=== PATIENT | female | born 1945 | race Caucasian/White ===

== ENCOUNTER 2016-12-24 06:54 | Inpatient (IN) | payer MEDICARE ==
[2016-12-24] VITALS (12 sets, daily range): BP systolic 103–151; BP diastolic 57–94; PULSE 68–86; RESP 12–16; O2SAT 92–97
[~2016-12-24] VITALS: Ht 167.6 cm; Wt 78.1 kg
[~2016-12-24 06:54] MED LIST: ASCO250T7 PO; Bupivacaine Liposome 1.3% 20 mL Inj INFILTRATE ONE; CALC-243 PO; CHOL100045 PO; CeFAZolin Inj 2 GM in IV Premix 1 EACH IV ONE; ESTR10TA VAGINAL; HYG25 PO; LEVO112T4 PO; LIOT5TAB3 PO; Lactated Ringer's 1,000 ML IV ONE; MULT-620 PO; MULT-908 PO; Tranexamic Acid 100 mg/mL 10 mL Inj IV SCH; Vancomycin Inj 1,000 MG in IV Premix 1 EACH IV ONE
[2016-12-24] MEDS ORDERED: Lactated Ringer's 1,000 ML IV ONE (07:47)
--- NOTE | 2016-12-24 08:41 | PCM.HPANE ---
Patient Data Surgeon Admitting Provider: Attending Provider:Pierce Rosas MD Primary Care Physician:Judith Roman MD Other Provider:CheyanneocGabbyDubach Anesthesia Reason for Visit Right Knee Arthritis Ht/WT & BMI Height (Feet): 5 Height (Inches): 6.00 Weight (Kilograms): 78.100 Body Mass Index 27.00 Allergies Coded Allergies: No Known Drug Allergies (Verified Allergy, Unknown, 12/20/16) Past Anesthesia History Anesthesia History: Denies:: Abnormal Airway, Anesthesia Reactions, Difficult Intubation, Fam Anesthesia Reaction, Fam Malignant Hypertherm, Malignant Hyperthermia Diabetes History Hx Diabetes?: No MRSA MRSA: No Medications Hypertension Medication: Yes (CHLORTHALIDONE) Home Meds Incl Beta Ernesto: No Reported Medications Ascorbic Acid (Vitamin C)250 Mg Tab.exiv000 Mg PO BID 30 Days Ref 0 12/20/16 Estradiol (Vagifem)10 Mcg Uyitls88 Mcg VAGINAL 2X/WEEK 12/20/16 Chlorthalidone 25 Mg Udtewf54.5 Mg PO DAILY #30 TABLET 12/20/16 Calcium Carbonate/Vitamin D3 (Calcium 600 + Vit D Tablet)1 Each Tablet2 Each PO DAILY 12/20/16 Levothyroxine 112 Mcg [id number] Mcg PO DAILY For Thyroid Replacement Ref 0 12/20/16 Liothyronine Sodium 5 Mcg Tablet5 Mcg PO DAILY #30 TABLET 01/26/15 Discontinued Reported Medications Multivits Min/Iron/FA/Herb#186 (Hair, Skin & Nails Caplet)1 Each Tablet1 Each PO DAILY 12/20/16 Cholecalciferol (Vitamin D3) (Vitamin D)1,000 Unit Capsule2,000 Unit PO DAILY # 1 BOTTLE Ref 0 12/20/16 Multivitamin with Minerals (Totalday Multiple)1 Each Tablet.er1 Each PO DAILY 12/20/16 Levothyroxine (Synthroid)100 Mcg Gnilum527 Mcg PO DAILY 30 Days Ref 0 01/26/15 Multivitamin with Minerals (Multiple Vitamin)1 Each Tablet1 Each PO DAILY 01/26/15 Cholecalciferol (Vitamin D3) (Vitamin D-3)2,000 Unit Capsule2,000 Unit PO 01/26/15 History History of ENT Problems?: Yes HEENT History: Positive for:: Cataracts (S/P EXTRACTION) Denies:: Abnormal Airway Difficult Intubation Hearing Problem Hx of Heart Problems?: Yes Cardiovascular History: Positive for:: Abdominal Aortic Aneurism (ASCENDING AORTA MILDLY ENLARGED) Hypertension Irregular Heartbeat (C/OF PALPITATIONS,NEAR-SYNCOPE) Valvular Heart Disease Denies:: Heart Murmur (ECHO 10/2016 EF 60-65%) Hx of Respiratory Problem?: No Respiratory History: Denies:: Use of C-PAP Machine Hx Neurologic Problems?: Yes Neurological History: Positive for:: Dizziness (HX NEAR-SYNCOPE) Headaches Denies:: CVA Hx of GI Problems?: Yes Gastrointestinal History: Positive for:: Liver Disease (LIVER CYST NOTED ON ECHO) Denies:: Diverticulitis (DIVERTICULOSIS) Hx of Problems?: Yes Female Hx: Denies:: Currently (ATROPHIC VAGINITIS) Skin History: Denies:: History Skin Disorders? Pressure Ulcers Hx Musculoskeletal Problems?: Yes Musculoskeletal History: Positive for:: Degenerative Joint (RT KNEE=CURRENT PROBLEM) Joint Replacement (S/P LT TKA) Osteoarthritis (OSTEOPENIA) Hx of Psycho/Social Problems?: No Hx Surgeries?: Yes (CATARACT,LT TKA,HYST) Hx Any Other Health Problems?: Yes Other History: Positive for:: Hospitalization Thyroid Disease Denies:: Cancer Endocrine Disease History Blood Transfusions: Denies:: Blood Transfusions Hx Diabetes: No Hx Alcohol Use: YesAlcoholic Drinks Per Day: 1-3/DAYHx Substance Use: No Smoking Status: Former Smoker Have You Smoked inLast 12 mo: NoApprox How Many Cigarettes/day: 15 PK/YR/HX Stop/Bang S-Snoring: Do You Snore Loudly: No T-Tired: feel tired, fatigued: Yes O-Obsered: Observed not breath: No P-Blood Pressure: treated: Yes B- Body Mass Index > 35 kg/m2: No A- Age over 50: Yes N- Neck Large Circumference: No G- Gender Male: No PATRICIA Total Score: 3 PATRICIA Risk Assessment: High Risk, =/>3 Yes PATRICIA Category 2: Yes Risk Assessment Category Category 1A: Patient has history of documented sleep apnea, and HAS NOT received any narcotic, sedative or anesthesia administration during this stay. Category 1B: Patient has history of documented sleep apnea, and HAS received any narcotic , sedative or anesthesia administration during this stay Category 2: Patient has SUSPECTED Obstructive Sleep Apnea, and HAS received any narcotic , sedative or anesthesia administration during this stay. Category 3: Patient has SUSPECTED Obstructive Sleep Apnea and HAS NOT received narcotic, sedative or anesthesia administration during this stay. Category 4: Outpatient in Procedural Areas with known sleep apnea or who screen positive for High Risk via the STOP/BANG questionnaire. Exam Exam Vital Signs Vital Signs Date Time Temp Pulse Resp B/P Pulse Ox O2 Delivery O2 Flow Rate FiO2 12/24/16 07:22 36.5 86 16 151/94 96 Room Air General Appearance: Alert HEENT/AIRWAY: MP 1 Lungs: Clear to Auscultation Heart: Exam Unremarkable Meds/Labs/Diagnostics Admission Meds Current Medications Lactated Ringer's (Lr) 1,000 ml @ ud STK-MED ONCE IV Last administered on 12/24t 07:47; Start 12/24/16 at 07:47; Stop 12/24/16 at 07:48; Status DC Plan Impression Patient chart reviewed, patient interviewed and anesthestic plan with risks, benefits, and alternatives discussed, and informed consent obtained. NPO Status: 12/23@1900 ASA Physical Status: ASA2 Mod Systemic Disease Anesthetic Plan: Regional Block, SAB Bene/Risks/Altern/Consents: Yes HP Complete Prior to Induction: Yes Pavel Blanc MD Dec 24, 2016 08:41
[2016-12-24] MEDS ORDERED: 0.9% Sodium Chloride 200 ML ONE (10:07)
[2016-12-24] MEDS ORDERED: Gentamicin 40 mg/mL 2 mL Inj IRRIGATION ONE (10:09)
[2016-12-24] MEDS ORDERED: Bupivacaine-MPF 0.25%/EPI 30 mL Inj INJ ONE (10:09)
[2016-12-24] MEDS: Tranexamic Acid 100 mg/mL 10 mL Inj ONE ×2 (10:30→11:33)
[2016-12-24] MEDS ORDERED: Lactated Ringer's 500 ML IV PRN (11:12)
[2016-12-24] MEDS ORDERED: Lactated Ringer's 1,000 ML IV SCH (11:12)
[2016-12-24] MEDS ORDERED: Dexamethasone 4 mg/mL Inj IVPUSH PRN (11:15)
[2016-12-24] MEDS ORDERED: Phenylephrine 10,000 mCg/mL Inj IVPUSH PRN (11:15)
[2016-12-24] MEDS ORDERED: EPHEDrine Sulfate 50 mg/mL Inj IVPUSH PRN (11:15)
[2016-12-24] MEDS ORDERED: HYDROmorphone 1 mg/mL Inj IVPUSH PRN (11:15)
[2016-12-24] MEDS ORDERED: Ondansetron 2 mg/mL 2 mL Inj IVPUSH PRN (11:15)
[2016-12-24] MEDS ORDERED: MetoCLOpramide 5 mg/mL 2 mL Inj IVPUSH PRN (11:15)
[2016-12-24] MEDS ORDERED: fentaNYL-PF 50 mCg/mL 2 mL Inj IVPUSH PRN (11:15)
[2016-12-24] MEDS ORDERED: Dexamethasone 4 mg/mL Inj INTRARTICU ONE (11:38)
--- NOTE | 2016-12-24 12:06 | PCM.ANEP1 ---
Post Anesthesia Phase 1 PACU Phase 1 Assessment Vital Signs Vital Signs Date Time Temp Pulse Resp B/P Pulse Ox O2 Delivery O2 Flow Rate FiO2 12/24/16 07:22 36.5 86 16 151/94 96 Room Air Anesthetic Administered: SAB Level of Alertness: Awake, talking IRENE's with Equal Strength: No Pain: No Nausea or Vomiting: No Oxygen Delivery: Room Air Lungs: Clear to Auscultation Summary AWAKE, no complications 103/59 sat 96 temp 36.6 rr12 Pavel Blanc MD Dec 24, 2016 12:06
--- NOTE | 2016-12-24 12:43 | DRSVH ---
PROCEDURE: X-RAY RIGHT KNEE, ONE OR TWO VIEWS ([id number]) INDICATIONS: PROTHESIS ALIGNMENT TECHNIQUE: 2 view(s) of the knee acquired. COMPARISON: None. FINDINGS: Bones: Patient is status post knee joint arthroplasty. Hardware components are in expected position s. Visualized bony structures are intact. Soft tissues: Overlying postoperative changes are noted. IMPRESSION: Expected appearance following right knee arthroplasty. Dictated by: Muna Leon M.D. on 12/24/2016 at 12:41 Approved by: Muna Leon M.D. on 12/24/2016 at 12:41
[2016-12-24 13:04] LABS: APPEARANCE,URINE HAZY (CLEAR,HAZY); COLOR,URINE STRAW (YELLOW); PH,URINE 7.5 (5.0-8.0)
[2016-12-24 13:05] LABS: OCCULT BLOOD,URINE NEGATIVE (NEGATIVE); UROBILINOGEN,URINE NORMAL (NORMAL)
[2016-12-24] MEDS ORDERED: fentaNYL-PF 50 mCg/mL 2 mL Inj ONE (13:17)
[2016-12-24] MEDS ORDERED: Propofol 10,000 mCg/mL 20 mL Inj ONE (13:17)
[2016-12-24] MEDS ORDERED: diphenhydrAMINE 25 mg Capsule PO PRN (13:35)
[2016-12-24] MEDS ORDERED: LORazepam 0.5 mg Tablet PO PRN (13:35)
[2016-12-24] MEDS ORDERED: Ondansetron 2 mg/mL 2 mL Inj IV PRN (13:35)
[2016-12-24] MEDS ORDERED: MetoCLOpramide 5 mg/mL 2 mL Inj IV PRN (13:35)
[2016-12-24] MEDS ORDERED: Sodium Biphos-Phos 133 mL Enema RECTAL PRN (13:35)
[2016-12-24] MEDS ORDERED: Alum-Mag Hydrox-Simeth 30 mL Suspension PO PRN (13:35)
[2016-12-24] MEDS ORDERED: Magnesium Hydroxide 10 mL Oral Concentration PO PRN (13:35)
[2016-12-24] MEDS: Lactated Ringer's 1,000 ML IV SCH (13:35)
[2016-12-24] MEDS ORDERED: Ondansetron 8 mg ODT Tablet PO PRN (13:35)
[2016-12-24] MEDS: oxyCODONE-Acetamin 5-325 mg Tablet PO PRN ×4 (14:00→22:41)
--- NOTE | 2016-12-24 14:00 | NUR ---
POST-OP Patient received from PACU via a hospital bed. On O2 at 2 LPM via NC. IVF ongoing. Dressing is CDI on her RLE. Hemovac is intact and clamped at this time. Hemovac to be unclamped at 1700 per report. IFC intact and draining to jennyfer colored UO. Patient denies pain at this time. Denies nausea/SOB. BLE numbness. Spinal and Fem block is in effect. Patient is able to wiggle toes. Oriented to room and call light. (Pls. refer to post-op grid for assessments).
--- NOTE | 2016-12-24 14:15 | PCM.ANEP2 ---
Post Anesthesia Evaluation ASA/CMS Post Anesthesia VS in Patient's Normal Range?: Yes Resp Stable; Airway Patent?: Yes CV Function & Hydration Stable: Yes Mental Status Recovered?: Yes Pain control Satisfactory?: Yes N/V Control Satisfactory?: Yes Pavel Blanc MD Dec 24, 2016 14:15
[2016-12-24] MEDS: hydrOXYzine Pamoate 25 mg Capsule PO PRN (15:46)
[2016-12-24] MEDS: CeFAZolin Inj 2 GM in IV Premix 1 EACH IV SCH (18:25)
--- NOTE | 2016-12-24 22:52 | OP ---
[address] [address] OPERATIVE REPORT PATIENT: JATIN JONES : 1945 MR#: [id number] ADMIT: 12/24/2016 JOB ID: [id number] DATE OF SURGERY: 12/24/2016 SURGEON: Pierce Rosas MD SINGLE WIRE SAW OPERATOR: Serenity Connor PA-C; Connor required for the total knee due to the significant complexity of the operation. PREOPERATIVE DIAGNOSIS(ES): 1. Advanced arthritis, right knee. 2. Probable neuroma, left knee. POSTOPERATIVE DIAGNOSIS(ES): PROCEDURES: 1. Right total knee replacement. 2. Left knee neuroma injection. INDICATIONS: This woman has severe progressive osteoarthritis. Symptoms uncontrolled with conservative treatment. She elects to proceed with a total knee replacement. She understands and accepts the potential for risks, complications, which include but are not limited to infection, thromboembolic, neurovascular events, implant failure, among others. Understanding this, she wishes to proceed. PROCEDURE: The patient was prepped and draped in the usual sterile fashion. An anteromedial approach made. The patella was subluxed laterally, cut transversely, sized to a 35 mm patella. Patellar protection plate utilized. Drill hole placed in the distal femur, 5 degree valgus distal femoral cut was made. The femur was sized to a 7. Chamfer block fixed in appropriate position. Rotation and chamfer cuts were made and subsequent trial drill holes were made. All meniscal tissue and osteophytes were removed. The tibia was cut with the extramedullary tool, sized to an E tibial plate, fixed in appropriate position. Rotation and drill hole and punch utilized. Trial reductions performed, and a 13-mm polyethylene produced excellent soft tissue tension and tracking, balance and alignment with a medial congruent trial polyethylene. Pressurized lavage followed by pressurized cementation of the components. Excess cement was removed during the curing process. Final construct was assembled. Full extension was easily achieved as well as passive drop to 120 degrees flexion with good collateral stability in flexion and extension. Wounds were irrigated with sterile irrigant including diluted Betadine solution. Deep closure over Hemovac drain with number #2 Quill deep followed by 2-0 Vicryl, 3-0, and a 4-0 intracuticular stitch. Steri-Strips applied and a sterile dressing. The patient was returned to the recovery room in stable condition. He tolerated the procedure well. Left knee was subsequently injected in the site of a previously marked neuroma in the incision line of her previous total knee replacement. A Band-Aid was applied to this wound. Standard postoperative course recommended.
[2016-12-25 00:13] VITALS: BP 115/64; PULSE 84; RESP 16; O2SAT 96
[2016-12-25] MEDS: CeFAZolin Inj 2 GM in IV Premix 1 EACH IV SCH (01:21)
--- NOTE | 2016-12-25 02:09 | NUR ---
Mobility PT will mobilize today with PT. Addendum: 12/25/16 at 0209 by EVIE IRIZARRY RN Amended: Links added.
[2016-12-25] MEDS: oxyCODONE-Acetamin 5-325 mg Tablet PO PRN ×5 (02:21→20:03)
--- NOTE | 2016-12-25 04:02 | NUR ---
NOC PT has done well over noc shift. She has slept well. N/V checks to RLE are WNL. Acewrap in place with tiny amount of old blood noted. H/V putting out minimal and will be removed this am. Pain well managed with 2 percocet about every [address] until after she mobilizes today. Vitals WNL.
[2016-12-25] MEDS ORDERED: Vancomycin 1,000 mg/200 mL NS IV ONE (05:00)
[2016-12-25 05:31] VITALS: BP 111/68; PULSE 77; RESP 16; O2SAT 95
[2016-12-25 05:36] LABS: BASOPHILS % (AUTO) 0.1 % (0-3); EOSINOPHILS % (AUTO) 0.2 % (0-5); MONOCYTES % (AUTO) 10.2 % (4-12); Mean Corpuscular Hemoglobin 30.7 pg (27.0-35.0); Mean Corpuscular Volume 90.4 fL (81-100); NEUTROPHILS % (AUTO) 77.1 % (40-74); Platelet Count 257 bil/L (150-400)
[2016-12-25] MEDS: Lactated Ringer's 1,000 ML IV SCH ×2 (06:33→22:55)
--- NOTE | 2016-12-25 06:50 | PCM.PNORTH ---
Subjective Date of Service: Dec 25, 2016 Visit Information: Reason for Visit Right Knee Arthritis Surgery/Surgery Date Post-Op Day # Date of Admission: Dec 24, 2016 at 13:16 Hospital Day # Subjective Found patient awake and alert this morning and sitting up in bed. No complaints of surgical pain at this time. Discussed physical therapy with patient and she relates that she has had a left knee surgery in the past and is made with the process. She is generally active person and anticipates discharge as soon as possible. She [place]. Patient does have a spouse at home will be helping her postoperative hand she does have 3 stairs to enter her house. Patient does complain of some pain at the posterior calf this morning and we will order an ultrasound for that. Patient also complains of some discomfort about the thigh which I believe is likely tourniquet discomfort. Postop General: No Shortness of Breath, No Chest Pain, Good Appetite Pain Management: PO Objective Exam Objective Orientation: Alert and oriented 3 and pleasant. Dressing: Interoperative dressing is clean dry and intact. Wound: Wound is not visualized today. Compartments: Thigh and calf are soft. Some tenderness to add mid thigh posteriorly. Some tenderness at posterior calf. Mobility/sensation: Toe wiggle and sensation are intact at right lower extremity distally. DAVID hose: None Crenshaw: In place and working Drain: In place and working Gait: No gait yet as of this time with formal physical therapy. Vital Signs and I/O Vital Sign - Last Date Time Temp Pulse Resp B/P Pulse Ox O2 Delivery O2 Flow Rate FiO2 12/25/16 05:31 36.4 77 16 111/68 95 Room Air 12/24/16 20:05 2.00 Intake and Output 12/24/16 12/24/16 12/25/16 Cumulative From/Thru 15:00 23:00 07:00 12/20/16 10:54 - 12/25/16 05:31 Intake Total 1550 ml 1823 ml 638 ml 4011 ml Output Total 366 ml 1500 ml 1885 ml 3751 ml Balance 1184 ml 323 ml -1247 ml 260 ml Intake Oral 1500 ml 638 ml 2138 ml IV Total 1550 ml 323 ml 1873 ml Output Urine Total 310 ml 1500 ml 1800 ml 3610 ml Drainage Total 0 ml 85 ml 85 ml Estimated Blood Loss 56 ml 56 ml # Bowel Movements 0 0 Lab & Micro Results Laboratory Tests Test 12/24/16 12:18 12/25/16 04:55 Urine Color Straw (YELLOW) Urine Appearance Hazy (CLEAR,HAZY) Urine pH 7.5 (5.0-8.0) Urine Specific [place] 1.015 (1.003-1.035) Urine Protein Negativemg/dL (NEG,TRACE) Urine Glucose (UA) Negativemg/dL (NEGATIVE) Urine Ketones Negativemg/dL (NEGATIVE) Urine Occult Blood Negative (NEGATIVE) Urine Nitrite Negative (NEGATIVE) Urine Bilirubin Negative (NEGATIVE) Urine Urobilinogen Normalmg/dL (NORMAL) Urine Leukocyte Esterase Negative (NEGATIVE) Urine RBC 0-2/hpf (0-2) Urine WBC 0-5/hpf (0-5) Urine Epithelial Cells Occasional/hpf (NONE-MOD) Urine Crystals None seen (NONE SEEN) Urine Bacteria None/hpf (NONE-FEW) Urine Hyaline Casts None/lpf (NONE) Urine Granular Casts None seen (NONE SEEN) Urine Waxy Casts None seen (NONE SEEN) Urine Red Blood Cell Casts None seen (NONE SEEN) Urine White Blood Cell Casts None seen (NONE SEEN) Urine Mucus None seen (None Seen) Urine Trichomonas None seen (NONE SEEN) Urine Yeast None (NONE SEEN) Urinalysis Comment None Urine Culture Reflexed Not indicated White Blood Count 9.9th/mm3 (3.8-10.1) Red Blood Count 3.22mil/mm3 (3.90-5.20) Hemoglobin 9.9g/dL (12.0-15.6) Hematocrit 29.1% (35.0-46.0) Mean Corpuscular Volume 90.4fL (81-100) Mean Corpuscular Hemoglobin 30.7pg (27.0-35.0) Mean Corpuscular Hemoglobin Concent 34.0% (32.0-37.0) Red Cell Distribution Width 11.2% (12.3-15.4) Platelet Count 257bil/L (150-400) Neutrophils (%) (Auto) 77.1% (40-74) Lymphocytes (%) (Auto) 12.2% (14-46) Monocytes (%) (Auto) 10.2% (4-12) Eosinophils (%) (Auto) 0.2% (0-5) Basophils (%) (Auto) 0.1% (0-3) Result Diagram: 12/25/16 0455 General Appearance: Alert, Oriented X3, Cooperative, No Acute Distress Extremities: No Compartment Syndrom Noted, Thigh & Calf Soft/Nontender (some tenderness noted at the posterior calf.) Postop Sensory Motor: Distal Motor Intact, Movement in Toes, Distal Sensation Intact SURGICAL WOUND : Drain Location Body Site: Knee Wound Drainage Type: Hemovac Activity: Activity per PT, Ambulate with PT (weightbearing as tolerated on the left lower extremity using front wheeled walker. Continue formal physical therapy for mobility gait safety.) Catheters: Urethral 2 Way Crenshaw (Crenshaw will be discontinued today on postop day 1 after first PT session.) Assessment & Plan Impression Patient is a 71-year-old female who is undergone an elective right total knee arthroplasty on 12/24/2016 with a left knee injection. She is experiencing some calf discomfort posteriorly and she is experiencing some discomfort in the area of the tourniquet which was used intraoperatively. Patient is otherwise in good spirits and appears very active and healthy and is anxious to move forward with rehabilitation and discharge. Problems: Plan Postop day # 1 from right total knee arthroplasty and left knee injection performed on 12/24/[address] Pierce Rosas. Weight bearing status: Weightbearing as tolerated on the right lower extremity Mobility aid: Front-wheeled walker Immobilization: None Precautions: Standard postoperative safety precautions up with assist until cleared by therapy for independent mobility Physical therapy: Continue formal physical therapy for mobility, gait and safety. Patient has arranged outpatient phthisical therapy to begin on Saturday , 01/08/2017. Pain control: Continue by mouth pain control with Percocet 5 and Vistaril. DVT prophylaxis: ASA 81 mg EC by mouth twice a day 6 weeks postop for DVT prophylaxis. Wound care: Keep wound and dressing clean dry and intact. Crenshaw: In place and working. Nursing pleased DC Crenshaw postop day 1 after first PT session. Dressing: Perioperative dressings clean dry and intact. Interoperative dressing will be changed postop dressing on postop day 2 Drain: In place and working. Nursing please remove wound drain at 24 hours postop. DAVID hose: Bilateral thigh-high DAVID hose are ordered for application today on postop day 1. Right DAVID hose may be held until postoperative day 2 when large bandages removed. Nursing communication: Nursing please measure and place for bilateral thigh- high DAVID hose and apply left lower extremity DAVID hose today with application of right DAVID hose on postop day 2 after bandages change. Nursing please discontinue Crenshaw today on postop day #1 after first PT session. Nursing please discontinue wound drain at 24 hours postop. 2-week follow-up: Follow-up in 2 weeks at [facility] orthopedic clinic on prearranged appointment with mid-level provider for wound check and suture removal. 6-week follow-up: Follow-up in 6 weeks at [facility] on prearranged appointment with Dr. Pierce Rosas with right 2 view knee x- rays on arrival. Plan: Patient anticipates a usual course with physical therapy training and likely discharge on her before postop day 3 to home with spouse as caregiver. Discharge instructions: Weightbearing as tolerated on the right lower extremity using a front-wheeled walker. Begin formal physical therapy as soon after discharge as possible. Keep right knee wound clean dry and covered until seen in office in 2 weeks. Discharge plan: Anticipate discharge to home with spouse as caregiver on her before postop day #3. VTE Prophylaxis: SCDs (SE DLS lower extremity), DAVID Hose (bilateral thigh-high DAVID hose), Other (ASA 81 mg EC by mouth twice a day 6 weeks postop for DVT prophylaxis.) Gamal Padilla PA-C Dec 25, 2016 06:50
[2016-12-25] MEDS: hydrOXYzine Pamoate 25 mg Capsule PO PRN (09:31)
--- NOTE | 2016-12-25 12:17 | DRSVH ---
PROCEDURE: US VEINOUS LEG DUPLEX UNILATERAL, RIGHT INDICATIONS: pain at posterior calf TECHNIQUE: Real-time imaging, as well as color and pulse Doppler interrogation, were performed of the lower extr emity deep veins from the inguinal ligament to the popliteal fossa. COMPARISON: None. FINDINGS: The deep veins are normally compressible, and free of intraluminal thrombus. Color and pu lse Doppler demonstrate normal phasic intraluminal flow. There is normal augmentation response to di stal compression maneuver. IMPRESSION: 1. No deep venous thrombosis identified within the right lower extremity. 2. Complex fluid collection within the right popliteal fossa measuring up to 4.8 cm likely a Montero's cyst. Dictated by: Jona CHAPMAN Interpreted: Elizabeth cMgill MD on 12/25/2016 at 12:15 Transcribed by: ELIZABETH on 12/25/2016 at 12:16 Approved by: Elizabeth Mcgill M.D. on 12/25/2016 at 15:20
--- NOTE | 2016-12-25 12:39 | NUR ---
Social Work- Initial Assessment: Data: See Initial Assessment. Pt is a 71 year old female admitted 12/24/16 for right knee arthritis. Pt's insurance is Medicare and [employer] and PCP is Vandana Roman MD. EMR Reviewed. SW met with pt at bedside to discuss discharge planning, SW role explained. Pt is alert and oriented x3. Pt resides at home with in [place] where she remains independent with ADLs. Pt does not typically use any DME, although she does have a fww available for use post-surgery. Pt continues to drive. Pt has no HH or SNF history. PT assessed patient and recommended home. Pt informed social work that she already has outpt PT set up. Pt's to provide transport home at discharge. SW provided phone number and plan on whiteboard. No anticipated discharge needs. SW continue to follow. Assessment: Pt who is independent at baseline. Plan: Anticipate pt to discharge home with to transport via POV. Pt to receive outpt services for PT.No anticipated discharge needs. SW continue to follow. FORTUNATO Ignacio Addendum: 12/25/16 at 1248 by ERIC WHITLEY SS Amended: Links added.
[2016-12-25 14:20] VITALS: BP 138/73; PULSE 78; RESP 16; O2SAT 100
--- NOTE | 2016-12-25 19:22 | NUR ---
Pain, Urination Patient reported pain on and off during the shift, increased with trips to the bathroom and physical therapy work. Patient reports pain decreased with ordered oral pain medications. Patient able to void without difficulty after moon removal. Care is ongoing.
[2016-12-25 20:27] VITALS: BP 123/67; PULSE 83; RESP 16; O2SAT 95
[2016-12-26] MEDS: oxyCODONE-Acetamin 5-325 mg Tablet PO PRN ×4 (00:27→14:21)
[2016-12-26 05:24] VITALS: BP 139/73; PULSE 87; RESP 16; O2SAT 95
--- NOTE | 2016-12-26 05:38 | NUR ---
pain pt states this AM post op day 2 she is in more pain this yesterday. she became tearful after walking to bathroom and stated that she did not feel like she would be going home. nurse alternated percocet with roxicodone and pt reports pain at a tolerable level now. she is able to get in and out of bed without assistance and walk to the bathroom with a fww. she is steady on her feet. care continues.
--- NOTE | 2016-12-26 06:02 | PCM.PNORTH ---
Subjective Date of Service: Dec 26, 2016 Visit Information: Reason for Visit Right Knee Arthritis Surgery/Surgery Date Post-Op Day # Date of Admission: Dec 24, 2016 at 13:16 Hospital Day # Subjective Found patient awake and alert this morning and sitting up in bed. No complaints of recurrent pain but does discuss feeling somewhat more sore after yesterday's therapy sessions. Patient has voiced that she definitely does not want to go home today and is planning on discharge on postop day 3. I am encouraged patient again this morning to participate fully with formal therapy to gain additional distance in her gait training so that she is safe in multiple for return to home. We have reviewed bandaging and showering and managing her surgical wound until she is seen at 2 weeks postop. Postop General: No Complaints, No Shortness of Breath, No Chest Pain, Good Appetite Pain Management: PO Objective Exam Objective Orientation: Alert and oriented 3 and pleasant. Dressing: Interoperative dressing was removed and changed on 12/25/2016 secondary to ultrasound imaging. Postoperative dressing was removed this morning and changed to Picco style ABD and fishnet with Silverlon. Wound: Surgical wound is clean dry and intact. Some Steri-Strips were removed with a bandaging and easily replace this morning. Pressure dressing was removed from drain site wound and this is no longer draining and is in good condition. Compartments: Calf and thigh are soft and nontender. 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 Mobility/sensation: Toe wiggle and sensation are intact at right lower extremity distally DAVID hose: DAVID hose were ordered on 12/25/2016 and have not been measured or fitted yet. I spoke with nurse about this this morning and she will fit DAVID hose as soon as they are measured and acquired. Crenshaw: Absent Drain: Absent Gait: Gait 25 feet on postop day 1, 12/25/2016. Vital Signs and I/O Vital Sign - Last Date Time Temp Pulse Resp B/P Pulse Ox O2 Delivery O2 Flow Rate FiO2 12/26/16 05:24 36.7 87 16 139/73 95 Room Air 12/24/16 20:05 2.00 Intake and Output 12/25/16 12/25/16 12/26/16 Cumulative From/Thru 15:00 23:00 07:00 12/20/16 10:54 - 12/26/16 05:24 Intake Total 800 ml 1100 ml 6631 ml Output Total 200 ml 1250 ml 5201 ml Balance 600 ml -150 ml 1430 ml Intake Oral 800 ml 1100 ml 4038 ml IV Total 2593 ml Output Urine Total 200 ml 1250 ml 5060 ml Drainage Total 85 ml Estimated Blood Loss 56 ml # Voids 1 1 # Bowel Movements 0 Result Diagram: 12/25/16 0455 General Appearance: Alert, Oriented X3, Cooperative, No Acute Distress Extremities: No Compartment Syndrom Noted, Thigh & Calf Soft/Nontender Postop Sensory Motor: Distal Motor Intact, Movement in Toes, Distal Sensation Intact SURGICAL WOUND : Drain Location Body Site: Knee Wound Drainage Type: Hemovac Activity: Activity per PT, Ambulate with PT (weightbearing as tolerated on the left lower extremity using front wheeled walker. Continue formal physical therapy for mobility gait safety.) Catheters: None Assessment & Plan Impression Patient is in good spirits this morning and is participating well with formal physical therapy. She is increasing her gait and will be ready for discharge on postop day 3. Problems: Plan Postop day # 2 from right total knee arthroplasty and left knee injection performed on 12/24/[address] Pierce Rosas. Weight bearing status: Weightbearing as tolerated on the right lower extremity Mobility aid: Front-wheeled walker Immobilization: None Precautions: Standard postoperative safety precautions up with assist until cleared by therapy for independent mobility Physical therapy: Continue formal physical therapy for mobility, gait and safety. Patient has arranged outpatient phthisical therapy to begin on Saturday , 01/08/2017. Pain control: Continue by mouth pain control with Percocet 5 and Vistaril. DVT prophylaxis: ASA 81 mg EC by mouth twice a day 6 weeks postop for DVT prophylaxis. Wound care: Keep wound and dressing clean dry and intact. Crenshaw: Absent Dressing: Interoperative dressing was removed on 12/25/2016 secondary to ultrasound test. Postoperative dressing was removed this morning as well and changed to ABDs and fishnet style dressing with Silverlon. Wound is in good condition and is clean dry and intact. Drain: Absent DAVID hose: Bilateral thigh-high DAVID hose were ordered on postop day 1 and the order apparently was missed. I called nursing's attention to this and they will 50s today. Nursing communication: Nursing please measure and place bilateral thigh-high DAVID hose today on postop day 2. 2-week follow-up: Follow-up in 2 weeks at [facility] orthopedic clinic on prearranged appointment with mid-level provider for wound check and suture removal. 6-week follow-up: Follow-up in 6 weeks at [facility] orthopedic clinic on prearranged appointment with Dr. Pierce Rosas with right 2 view knee x- rays on arrival. Plan: Patient anticipates a usual course with physical therapy training and likely discharge on or before postop day 3 to home with spouse as caregiver. Discharge instructions: Weightbearing as tolerated on the right lower extremity using a front-wheeled walker. Begin formal physical therapy as soon after discharge as possible. Keep right knee wound clean dry and covered until seen in office in 2 weeks. Patient may shower after 4 days if wound is dry. Discharge plan: Anticipate discharge to home with spouse as caregiver on postop day #3. VTE Prophylaxis: SCDs (SE DLS lower extremity), DAVID Hose (bilateral thigh-high DAVID hose), Other (ASA 81 mg EC by mouth twice a day 6 weeks postop for DVT prophylaxis.) Gamal Padilla PA-C Dec 26, 2016 06:02
[2016-12-26 08:04] VITALS: BP 129/72; PULSE 78; RESP 16; O2SAT 96
--- NOTE | 2016-12-26 10:27 | NUR ---
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 Work order placed, pharmacy called to send replacement medications. Awaiting meds from pharmacy.
[2016-12-26 12:24] VITALS: BP 162/81; PULSE 75; RESP 16; O2SAT 95
[2016-12-26 14:12] VITALS: BP 136/83; PULSE 91
--- NOTE | 2016-12-26 14:25 | NUR ---
Activity During physical therapy/ambulating in hallway, pt became dizzy, nauseated, pale and diaphoret. VSS. Seated in wheelchair, color returned. Returned to bed without further incident. At this time, pt eating candy in bed, no complaints. Skin pink warm and dry. Radial pulse strong and regular. Continue to monitor.
--- NOTE | 2016-12-26 14:39 | NUR ---
Pain P:patient c/o pain in right knee I: Ice packs applied to medial and lateral knee E: patient reports pain relief with ice states pain is 4/10
--- NOTE | 2016-12-26 15:07 | NUR ---
Social Work-readiness for discharge: Data:EMR reviewed.Pt is on day 2 of hospitalization for right knee arthritis per H&P. Pt is not medically stable, anticipate 1 more day. Pt resides at home with . Pt has been cleared by PT for home with outpt PT services. Pt and updated and agreeable to plan. No anticipated discharge needs. SW will continue to follow if needs arise. Assessment:Pt who is independent at baseline. Plan:Pt to discharge home when medically stable via POV. PT has cleared pt for home with outpt PT. No anticipated discharge needs. SW will continue to follow if needs arise. FORTUNATO Zapata
[2016-12-26] MEDS: Lactated Ringer's 1,000 ML IV SCH (15:35)
--- NOTE | 2016-12-26 15:53 | NUR ---
Evaluation completed. Please go to "Notes" then click on "Assessments and Notes" (bottom left corner of screen). Then select appropriate discipline tab on top of screen.
[2016-12-26 16:15] VITALS: BP 150/88; PULSE 84; RESP 18; O2SAT 94
[2016-12-26] MEDS: HYDROcodone-APAP 5-325 mg Tablet PO PRN ×2 (19:03→23:11)
[2016-12-26 20:34] VITALS: BP 155/75; PULSE 92; RESP 17; O2SAT 95
[2016-12-27] MEDS: HYDROcodone-APAP 5-325 mg Tablet PO PRN ×5 (02:55→15:04)
[2016-12-27 05:35] VITALS: BP 136/76; PULSE 84; RESP 16; O2SAT 95
--- NOTE | 2016-12-27 06:24 | NUR ---
pain per report there was some concern that Percocet was making the pt dizzy and queasy with ambulation. nurse discussed it with pt and decided to try and use Vicodin instead. pt has taken the Vicodin q4hrs no nausea or dizziness this shift. she did have to take Roxicodone once for breakthrough pain but tolerated it well. day shift reported that mariela hose had not been put on the operative leg because pt was worried about the blood oozing from her surgical site. nurse discussed benefits of wearing the mariela hose and pt agreed to put it on. after putting on the mariela hose the surgical site did initially bleed. through the mariela hose you could see drainage on the bandage. this was concerning to the pt so SEISMIC OBSERVER outlined the area of shadow drainage so that pt could see that it was not getting bigger. pt is also pointed out that she has an area above her surgical site on her inner thigh that is warm to the touch and pink. site is being monitored. no change at this time. care continues.
[2016-12-27] MEDS: Lactated Ringer's 1,000 ML IV SCH (08:15)
--- NOTE | 2016-12-27 08:34 | PCM.PNORTH ---
Subjective Date of Service: Dec 27, 2016 Visit Information: Reason for Visit Right Knee Arthritis Surgery/Surgery Date right total knee arthroplasty 12/24/2016 Post-Op Day # 3 Date of Admission: Dec 24, 2016 at 13:16 Hospital Day # Subjective The patient complains of soreness in the medial thigh from the groin down to the knee. She feels that the inner thigh is a little discolored. Patient had venous Doppler on Saturday which was negative. There is been some bloody drainage on the bandage with strikethrough to the stockings. Patient is progressing well with physical therapy and feels that she is ready to go home today. She complains of the compression stockings creating tight bands on the leg. She has some nausea and weakness yesterday but today reports that she is feeling better and performed well with therapy. She prefers the [place] over the Percocet. She also would like to have Zofran for going home. Postop General: No Shortness of Breath, No Chest Pain, Good Appetite Pain Management: PO Objective Exam Objective Patient is seen sitting up in bed Vital Signs and I/O Vital Sign - Last Date Time Temp Pulse Resp B/P Pulse Ox O2 Delivery O2 Flow Rate FiO2 12/27/16 05:35 36.7 84 16 136/76 95 Room Air 12/24/16 20:05 2.00 Intake and Output 12/26/16 12/26/16 12/27/16 Cumulative From/Thru 15:00 23:00 07:00 12/20/16 10:54 - 12/27/16 05:35 Intake Total 1520 ml 2000 ml 66653 ml Output Total 1850 ml 2575 ml 9626 ml Balance -330 ml -575 ml 525 ml Intake Oral 1520 ml 2000 ml 7558 ml IV Total 2593 ml Output Urine Total 1850 ml 2575 ml 9485 ml Drainage Total 85 ml Estimated Blood Loss 56 ml # Voids 1 # Bowel Movements 0 0 Result Diagram: 12/25/16 0455 General Appearance: Alert, Oriented X3, Cooperative, No Acute Distress Extremities: Distal Pulses Palpable, No Compartment Syndrom Noted, Tenderness/ Swelling Noted, Other (mild tenderness medial thigh along the abductor muscles and medial head of the calf) Postop Sensory Motor: Distal Motor Intact, NVI Distally SURGICAL WOUND : Wound Location/Description Right knee: There is a 3 cm region of dried serous drainage through the bandage to the stocking. This is all removed. There is mild ecchymosis at the knee. The wound is dry. There is no current drainage. There is no erythema at the incision. There are multiple small pimples along the popliteal crease. Drain Location Body Site: Knee Activity: Activity per PT, Ambulate with PT (weightbearing as tolerated on the left lower extremity using front wheeled walker. Continue formal physical therapy for mobility gait safety.) Catheters: None Assessment & Plan Impression Status post right total knee arthroplasty POD #3 Problems: Plan Weightbearing: Weightbearing as tolerated with walker DVT prophylaxis: aspirin 81 mg twice a day 6 weeks Physical therapy for transfers, progressive ambulation, therapeutic exercise Wound care: dressing changed to Silverlon, ABD, webril, and ирина wrap DC DAVID hose due to rash behind the right knee. The left leg also has a red indentation just above the knee where the stockings rolled up. Patient will get compression stocking and apply on Saturday if the rash behind the knee is improved. Discharge plan: Discharge home today. Start outpatient physical therapy next week. Discharge instructions are reviewed. Follow-up plan: In 2 weeks at [facility] with SIMONE for wound check and at [address] Rosas with x-rays Pain Management: Percocet, oxycodone, Redmond, Vistaril VTE Prophylaxis: SCDs, DAVID Hose, Other (Aspirin 81 mg BID) Resuscitation Status: CPR: Attempt Resuscitation Yasmine Pizarro PA-C Dec 27, 2016 08:33
[2016-12-27 09:07] VITALS: BP 135/79; PULSE 86; RESP 16; O2SAT 98
--- NOTE | 2016-12-27 12:16 | PCM.DIORTH ---
Ortho Discharge Instruction Date of Service: Dec 27, 2016 Dates of Hospitalization Date of Hospital Admission Dec 24, 2016 at 13:16 Providers Admitting Physician: Pierce Rosas MD Primary Care Physician: Judith Roman MD Attending Physician: Pierce Rosas MD Diet Discharge Diet: No restrictions Activity Discharge Activity-General: Balance rest and activity Right Lower Extremity: Weight Bearing as tolerated Discharge Assist Device: Front Wheeled Walker Dressing and Incisional Care Discharge Dressing Care: Keep dressing clean, dry & intact Discharge Hygiene: May shower (see instructions below) Additional Instructions Discharge Instructions Weightbearing: Weightbearing as tolerated with walker DVT prophylaxis: aspirin 81 mg twice a day 6 weeks Wound care: Leave in place for 2 days. Change dressing on Saturday. Cut the adhesive off the Silverlon dressing and size to fit the wound. Patient will get compression stocking and apply on Saturday if the rash behind the knee is improved. Start outpatient physical therapy next week. The patient may shower if the wound has no drainage present x 24 hours. Wound may be uncovered to shower. Let soap and water run over the wound, pat dry and apply a new dressing. Follow-up plan: In 2 weeks at [facility] with SIMONE for wound check and at [address] Rosas with x-rays Follow Up Plan Call your provider for: Fever, Chills, Shortness of breath, Vomitting, Drainage at incision, Wound redness Yasmine Pizarro PA-C Dec 27, 2016 12:16
[2016-12-27] MEDS ORDERED: ASPI-973 PO (12:19)
[2016-12-27] MEDS ORDERED: ONDA4TAB9 PO (12:19)
[2016-12-27] MEDS ORDERED: HYDR-4003 PO (12:19)
--- NOTE | 2016-12-27 12:23 | PCM.DC.ORT ---
Discharge Summary Date of Service: Dec 27, 2016 Date of Hospital Admission: Dec 24, 2016 at 13:16 Date of Surgery: Dec 27, 2016 Date of Discharge: Dec 27, 2016 Reason for Hospitalization: Right knee arthritis Procedures Performed: Right total knee arthroplasty Hospital Course: The patient was admitted to the hospital on 12/24/2016 and underwent the above procedure. Antibiotic prophylaxis consisting of Ancef and vancomycin. The surgeon was Dr. Rosas. A Crenshaw was placed perioperatively. Patient tolerated the procedure well and was transferred to recovery room in stable condition. Crenshaw was discontinued on postop day 1. Patient had physical therapy to work on ambulation and transfers. Weightbearing as tolerated with walker. Pain was managed with morphine, Percocet, [place] , Vistaril. DVT prophylaxis: Aspirin 81 mg twice a day. On postop day 1 patient complained of Pain venous Doppler was performed which was negative for DVT in the right lower extremity. On postop day 3 patient had soreness along the abductor muscles of the thigh and a rash in the popliteal crease of the right knee. DAVID hose and fishnet stockings were discontinued. Dressing was changed. Dressing was covered with cast padding and Vamsi wrap. Patient is instructed to avoid compression stockings for at least 2 days. If the skin improves she may use compression stockings at home. Patient progressed well with physical therapy and on POD-3 was discharged home. Follow-up: at [facility] 2 weeks postop for wound check and at [address] Rosas with x-ray Diagnosis at Time of Discharge Status post right total knee arthroplasty Problems: Disposition: Discharged home in stable condition Discharge Instructions: Weightbearing: Weightbearing as tolerated with walker Wound care: Change dressing every 1-2 days as needed The patient may shower if the wound has no drainage present x 24 hours. Wound may be uncovered to shower. Let soap and water run over the wound, pat dry and apply a new dressing. Do not soak the wound under water for 2 weeks after surgery Compression stockings: Due to rash behind the knee, avoid compression stockings for at least 2 days. If the rash clears in a couple of days he may resume using compression stockings. Prescription for thigh-high compression stockings were placed on the chart. Wear the stockings for a month if your skin can tolerate it. Driving: No driving for 1 month Start outpatient physical therapy next week as scheduled Every hour of the day that you are awake, I get up and walk or do exercises for the knee. It is okay to push it with bending and straightening. Do not rest the knee on a pillow as this can cause a flexion contracture. Pillow may be placed under the heel to help straighten the knee. Follow-up with [facility] in 2 weeks for wound check and at [address] Rosas, with x-ray Ascorbic Acid (Vitamin C) 250 Mg Tab.chew 250 MG PO BID Aspirin (Aspirin) 81 Mg Tablet 81 MG PO BID Calcium Carbonate/Vitamin D3 (Calcium 600 + Vit D Tablet) 1 Each Tablet 2 EACH PO DAILY Chlorthalidone (Chlorthalidone) 25 Mg Tablet 12.5 MG PO DAILY Estradiol (Vagifem) 10 Mcg Tablet 10 MCG VAGINAL 2X/WEEK Hydrocodone-Acetaminophen 5-325 mg (Hydrocodone-Acetaminophen 5-325 mg) 1 Each Tablet 1-2 TABLET PO Q4H PRN PRN For Moderate Pain Max 8 per day Levothyroxine (Levothyroxine) 112 Mcg Tablet 112 MCG PO DAILY Liothyronine Sodium (Liothyronine Sodium) 5 Mcg Tablet 5 MCG PO DAILY Ondansetron ODT (Zofran ODT) 4 Mg Tablet 4 MG PO Q6H PRN PRN For Nausea Yasmine Pizarro PA-C Dec 27, 2016 12:23
--- NOTE | 2016-12-27 13:13 | NUR ---
Social Work Discharge: SW acknowledged order for discharge. SW met with patient at bedside to discuss discharge plan. Patient states plan as home with who to assist with care needs. Patient has a walker available for use. Patient also has outpt therapy appointment scheduled at [facility] for [email or web address] on Saturday. No other needs identified at this time. SW to follow. PLAN: Home with and outpt PT follow up. No other needs identified at this time. SW to follow. Mushtaq BUCIO
--- NOTE | 2016-12-27 15:15 | NUR ---
Discharge Patient denied chest pain, SOB, or nausea at time of discharge. Patient given 1 tab [place] before leaving at 15:04. Patient's dressing to R knee C/D/I. Patient discharged home with her in wheelchair. Patient was given all the discharge information and instructions along with the prescriptions for [place] and Zofran, and for the mariela hose. Also provided patient with additional dressing materials for knee to change at home. Patient stated verbal understanding of all information we discussed in discharge packet. Addendum: 12/27/16 at 1546 by PAT MARIA RN DISCHARGE Hydrocodone 1 tab PO has been effective for pain control. Tolerating liquids PO and her diet well. Denies nausea. No emesis noted. Denies SOB. Patient has been able to ambulate in the room and in the hallway with SBA and a FWW. Cleared by PT to D/C to home. Tolerated activity well. Dressing was changed by DINORA Duron. Discharge instructions, care notes and prescription was given to the patient and she verbalized understanding. Discharged to home with her and all her personal belongings. (Copy of D/C is in the chart).
== END 2016-12-27 15:15 | disposition home or self-care (01) | DRG 470 ==
LOC: SAS 06:54 → OSC 13:16
PROVIDERS: ADMIT Orthopaedic Surgery; ATTEND Orthopaedic Surgery
PROC: 0SRC0J9 Replacement of Right Knee Joint with Synthetic Substitute, Cemented, Open Approach (ICD-10-PCS; principal; 2016-12-24 09:15)
DX: M17.11 Unilateral primary osteoarthritis, right knee (principal)